=== PATIENT | male | born 1940 | race African-American/Black ===

== ENCOUNTER 2018-04-16 10:21 | Outpatient (CLI) | payer BC ==
--- NOTE | 2018-04-16 14:10 | Ultrasound Report ---
ABDOMINAL ULTRASOUND: 04/16/18 10:21:00 CLINICAL: Renal cyst. FINDINGS: High-resolution ultrasound demonstrates a normal size liver with normal contour and echogenicity. No liver mass. Normal hepatic vasculature and inferior vena cava. Normal gallbladder with no cholelithiasis. The gallbladder wall measures 1.6 mm. Normal bile ducts. The common bile duct measures 5.7 mm diameter. The pancreas is well imaged and normal Normal abdominal aorta. A normal spleen measures 8.7 cm. Normal renal echogenicity and normal non-dilated renal collecting systems and ureters. The right kidney measures 9.9 x 5.3 x 3.6 cm. The left kidney measures 9.1 x 5.5 x 4.6 cm. An anterior exophytic cyst in the midportion of the left kidney measures 2.4 x 1.8 cm. No renal mass or calculus. No ascites or mass. IMPRESSION: A 2.4 cm benign left renal cyst and otherwise normal abdomen.
== END 2018-04-16 10:22 | disposition home or self-care (01) ==
LOC: SPVWC 10:21
PROVIDERS: ATTEND Internal Medicine
DX: N28.1 Cyst of kidney, acquired (principal)
CPT/HCPCS: 76700